=== PATIENT | female | born 1990 | race African-American/Black ===

== ENCOUNTER 2018-10-29 19:59 | Emergency (ER) | payer OTHER ==
[~2018-10-29] VITALS: Ht 162.6 cm; Wt 113.4 kg
[2018-10-30 00:10] VITALS: BP 94/46
== END 2018-10-30 00:10 | disposition home or self-care (01) ==
LOC: ER 19:59
DX: J11.1 Influenza due to unidentified influenza virus with other respiratory manifestations (principal)